=== PATIENT | female | born 1990 | race Caucasian/White ===

== ENCOUNTER 2021-12-02 22:30 | Emergency (ER) | payer OTHER ==
[2021-12-02] MEDS: predniSONE 20 MG TABLET PO STA (23:58)
[2021-12-02] MEDS: FAMOTIDINE 20 MG TABLET PO STA (23:58)
--- NOTE | 2021-12-03 00:06 | ED Physician Documentation ---
History of Present Illness - Stated complaint Stated Complaint: BODY RASH - Chief complaint Chief Complaint: General - History obtained from History obtained from: Patient - Additonal information Additional information: The patient comes to the emergency department chief complaint of intermittent hives for the last few days. The patient states she has not eaten or she states the rash just came up out of the blue and then seem to resolve with some Benadryl. Patient states that the next day, she noticed the urticaria, but in a different location. She states she took Benadryl again and this seemed to help again. Patient states she became concerned yesterday because the urticaria returned again but this time, the Benadryl did not seem as effective. Patient states she is gotten the rash both at home and at work. She has not been exposed to anything new whatsoever whether internally or externally. She did have a URI about a week ago, but states her symptoms are gone now. She does not have a history of being allergic to anything. No one else is sick at home. She has pictures of the rash on her phone, since she is really not having much of a rash right now, and the pictures do appear consistent with urticaria. No other complaints at this time. Review of Systems Ten Systems: 10 systems reviewed and negative Constitutional: reports: Reviewed and negative Eyes: reports: Reviewed and negative Ears: reports: Reviewed and negative Nose: reports: Reviewed and negative Throat: reports: Reviewed and negative Cardiac: reports: Reviewed and negative Respiratory: reports: Reviewed and negative GI: reports: Reviewed and negative : reports: Reviewed and negative Skin: reports: Rash Musculoskeletal: reports: Reviewed and negative Neurologic: reports: Reviewed and negative Psychiatric: reports: Reviewed and negative Endocrine: reports: Reviewed and negative Immunocompromised: reports: Reviewed and negative PD PAST MEDICAL HISTORY - Past Medical History Past Medical History: No Cardiovascular: None Respiratory: None Neuro: None Endocrine/Autoimmune: None GI: None 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: 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 : None HEENT: None Psych: None Musculoskeletal: None Derm: None - Past Surgical History Past Surgical History: No - Present Medications Home Medications: Ambulatory Orders Medication Instructions Recorded Confirmed Famotidine [Pepcid] 20 mg PO BID #6 tablet 12/03/21 predniSONE [Deltasone] 60 mg PO DAILY 3 Days #9 tablet 12/03/21 - Allergies Allergies/Adverse Reactions: Allergies Allergy/AdvReac Type Severity Reaction Status Date / Time Penicillins Allergy Rash Verified 12/02/21 22:38 - Social History Does the pt smoke?: No Smoking Status: Never smoker Does the pt drink ETOH?: Yes Does the pt have substance abuse?: No - Immunizations Immunizations are current?: Yes PD ED PE NORMAL - Vitals Vital signs reviewed: Yes - General General: Alert and oriented X 3, No acute distress, Well developed/nourished - HEENT HEENT: Atraumatic, PERRL, EOMI, Moist mucous membranes - Neck Neck: Supple, no meningeal sign - Respiratory Respiratory: No respiratory distress - Derm Derm: Normal color, Warm and dry, No rash - Extremities Extremities: No deformity, No edema, No calf tenderness / cord - Neuro Neuro: Alert and oriented X 3, outsole cutter machine 2-12 intact, Normal speech - Psych Psych: Normal mood, Normal affect Results - Vitals Vitals: Oxygen O2 Source Room air PD MEDICAL DECISION MAKING - ED course Complexity details: considered differential, d/w patient ED course: I discussed with the patient that is not clear at this point was causing u rticaria. We will place her on a course short course of prednisone since her urticaria seem to come and go but seem to be less responsive to Benadryl than before, and see if this stops the cycle. I have encouraged patient to keep a log or diary of places that she went and things to which she was exposed, including externally, such as detergents, lotions, and soap, and any internal exposures such as food or medication, and see if she can establish any sort of pattern or association for her urticaria. We have discussed the need for follow-up with her primary doctor and the need to discuss allergy referral if the patient's urticaria keep going on and she cannot figure out why. We have discussed the usual indications for return Departure - Departure Disposition: 01 Home, Self Care Clinical Impression: Allergic reaction Qualifiers: Encounter type: initial encounter Qualified Code(s): T78.40XA - Allergy, unspecified, initial encounter Condition: Stable Instructions: ED Allergic Reaction General Other Prescriptions: predniSONE [Deltasone] 60 mg PO DAILY 3 Days #9 tablet Famotidine [Pepcid] 20 mg PO BID #6 tablet Comments: It is not clear at this point what has caused your hives. It is most likely a reaction to something, though occasionally, certain viruses can cause outbreaks of hives, as well. It sounds like the reaction overall is fairly mild, and has mostly been controlled by Benadryl; however, it can be helpful to be on medication to address all aspects of an allergic reaction and as such, we will add prednisone and Pepcid to try to break the cycle of hive formation. You may take these for 3 days. If you are still having hives at that point, you will need to talk to your doctor about getting referred to an quick sketch artist. At this point in time, though you have not been able to identify anything that might have caused the reaction, it is still important to keep a log of exposures, whether food or other substances or environments, to try to establish a common pattern for the outbreaks. If you begin to have any swelling of the structures of your throat or mouth, please return to the emergency department immediately. Discharge Date/Time: 12/03/21 00:13
[2021-12-03 00:13] VITALS: BP 106/74
== END 2021-12-03 00:13 | disposition home or self-care (01) ==
LOC: ED 22:30
DX: T78.40XA Allergy, unspecified, initial encounter (principal); L50.9 Urticaria, unspecified
CPT/HCPCS: 99282; A9270; J7512

== ENCOUNTER 2022-02-17 09:18 | Emergency (ER) | payer OTHER ==
--- NOTE | 2022-02-17 09:49 | ED Physician Documentation ---
History of Present Illness - Stated complaint Stated Complaint: JAW PX - Chief complaint Chief Complaint: General - History obtained from History obtained from: Patient - Additonal information Additional information: The patient comes to the emergency department chief complaint of left TMJ popping and pain worsening over the last few days. The patient states it started while she was eating a bagel and she noticed a pop and a sharp pain. She states it felt as though her jaw then "popped back into place" and the pain went away. Patient states she had the same experience the next day while eating chips. This morning, it happened again while she was eating a breakfast sandwich and this time, the pain has persisted and she has not felt the sensation of popping back in the place. The patient states that she has had issues with her TMJ popping on that side, that that has never been painful before. She states she does not chew gum regularly. She is not a glass grinder or clench her of her teeth at night as far she knows. The patient denies any direct trauma. No dental pain or swelling. No other complaints at this time. Review of Systems Ten Systems: 10 systems reviewed and negative Constitutional: reports: Reviewed and negative Eyes: reports: Reviewed and negative Ears: reports: Reviewed and negative Nose: reports: Reviewed and negative Throat: reports: Reviewed and negative Cardiac: reports: Reviewed and negative Respiratory: reports: Reviewed and negative GI: reports: Reviewed and negative : reports: Reviewed and negative Skin: reports: Reviewed and negative Musculoskeletal: reports: Reviewed and negative Neurologic: reports: Reviewed and negative Psychiatric: reports: Reviewed and negative Endocrine: reports: Reviewed and negative Immunocompromised: reports: Reviewed and negative PD PAST MEDICAL HISTORY - Past Medical History Past Medical History: Yes Cardiovascular: None Respiratory: None Neuro: None Endocrine/Autoimmune: None GI: None SURGICAL COORDINATOR: None : None HEENT: None Psych: None Musculoskeletal: None Derm: None - Past Surgical History Past Surgical History: No - Present Medications Home Medications: Ambulatory Orders Medication Instructions Recorded Confirmed No Known Home Medications 02/17/22 02/17/22 - Allergies Allergies/Adverse Reactions: Allergies Allergy/AdvReac Type Severity Reaction Status Date / Time Penicillins Allergy Rash Verified 02/17/22 09:20 - Social History Does the pt smoke?: No Smoking Status: Former smoker Does the pt drink ETOH?: Yes Does the pt have substance abuse?: No - Immunizations Immunizations are current?: Yes PD ED PE NORMAL - Vitals Vital signs reviewed: Yes - General General: Alert and oriented X 3, No acute distress, Well developed/nourished - HEENT HEENT: Atraumatic, PERRL, EOMI, Moist mucous membranes, Other (Mild tenderness over left TMJ. No popping or clicking with range of motion. No deformity. Nearly full range of motion noted.) - Neck Neck: Supple, no meningeal sign, No adenopathy - Respiratory Respiratory: Clear bilaterally - Abdomen Abdomen: Normal bowel sounds, Soft, Non tender, Non distended - Derm Derm: Warm and dry - Extremities Extremities: No deformity - Neuro Neuro: Alert and oriented X 3 - Psych Psych: Normal mood, Normal affect Results - Vitals Vitals: Oxygen O2 Source Room air PD MEDICAL DECISION MAKING - ED course Complexity details: considered differential, d/w patient ED course: I d/w pt that her condition is nonemergent at this time, and that she does not have a TMJ dislocation. We have discussed symptomatic management and prevention, and the need for follow-up. Departure - Departure Disposition: 01 Home, Self Care Clinical Impression: TMJ syndrome Condition: Stable Instructions: ED TMJ Syndrome Follow-Up: HALEIGH GLORIA [Physician No Access] - Comments: Your symptoms are consistent with TMJ syndrome, a condition in which the temporomandibular joint, or jaw joint, is chronically inflamed and tracks improperly. This can cause sometimes just a clicking or popping, or can lead to episodes of pain. Initial treatment is usually to avoid chewing if at all possible until the pain goes down, and to take anti-inflammatories. You should generally avoid chewing things that are excessively "too weak" or hard, and that put a lot of strain on your joint. You should also avoid chewing gum if this keeps going on. Initial follow-up is usually with your dentist to see if you have a problem with clenching or grinding at night, one of the most common causes of TMJ syndrome. Sometimes excessive chewing of gum can cause this, though it does not sound like this is the case with you. If you are unable to see your dentist, or they are unable to provide satisfactory help for you, you may follow-up with Dr. Gloria, a local oral maxillofacial surgeon. For now, please eat only soft foods that require minimal chewing and take ibuprofen to help with inflammation. Discharge Date/Time: 02/17/22 09:53
== END 2022-02-17 09:53 | disposition home or self-care (01) ==
LOC: ED 09:18
DX: M26.622 Arthralgia of left temporomandibular joint (principal); Z87.891 Personal history of nicotine dependence
CPT/HCPCS: 99281; 99284

== ENCOUNTER 2022-08-08 13:17 | Emergency (ER) | payer OTHER ==
[2022-08-08 13:37] VITALS: BP 126/75
--- NOTE | 2022-08-08 15:19 | ED Physician Documentation ---
History of Present Illness - Stated complaint Stated Complaint: FB IN NOSE - Chief complaint Chief Complaint: Heent - Additonal information Additional information: 32-year-old female presents to the emergency department for evaluation of a f oreign body in her right nares. She did have a septal piercing that got dislodged and has now been lost into the posterior nasal field. 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 : None HEENT: None Psych: None Musculoskeletal: None Derm: None - Past Surgical History Past Surgical History: No - Present Medications Home Medications: Ambulatory Orders Medication Instructions Recorded Confirmed Levothyroxine Sodium 50 mcg PO DAILY 08/08/22 08/08/22 [Levothyroxine] - Allergies Allergies/Adverse Reactions: Allergies Allergy/AdvReac Type Severity Reaction Status Date / Time Penicillins Allergy Rash Verified 08/08/22 13:37 - Social History Does the pt smoke?: No Smoking Status: Former smoker Does the pt drink ETOH?: Yes Does the pt have substance abuse?: No - Immunizations Immunizations are current?: Yes PD ED PE EXPANDED - General General: Alert, No acute distress, Well developed/nourished - HEENT HEENT: Other (Unable to visualize a foreign body in the deeper posterior nasal field using nasal speculum.) Results - Vitals Vitals: Vital Signs - 24 hr 08/08/22 13:35 Temperature 36.4 C L Heart Rate 87 Respiratory 14 Rate Blood Pressure 126/75 O2 Saturation 99 Oxygen O2 Source Room air - Rads (name of study) nasal sinus xr Radiology: EMP read indepedently (No foreign body identified) PD MEDICAL DECISION MAKING - ED course Complexity details: considered differential, d/w patient ED course: 32-year-old female presents emergency department for concern that she has a right posterior nares foreign body. Her septal ring became dislodged and when she attempted to reposition it she feels that she may have pushed it deeper into the posterior nares. On my examination I am unable to see a posterior right nasal foreign body. Patient is rather convinced that there is a foreign body there so we did obtain some nasal and sinus x-ray imaging. Patient reports that the septal ring would have been metal and there is no findings to suggest a foreign body on x-ray imaging. I discussed this finding with the patient. Given that there is no obvious foreign body she is advised however to follow-up with ENT should she develop any foul smell, develop a headache or have malodorous drainage from her nares. Otherwise emergent return precautions discussed Departure - Departure Disposition: 01 Home, Self Care Clinical Impression: Nasal foreign body Qualifiers: Encounter type: initial encounter Qualified Code(s): T17.1XXA - Foreign body in nostril, initial encounter Condition: Stable Record reviewed to determine appropriate education?: Yes Comments: Berhane you are seen today in the emergency department because you think that your septal piercing may have been dislodged posterior lead into your nose. However when we look we do not see a foreign body in your nose. We also did sinus and nasal x-rays and do not see a foreign body on x-ray imaging. It is possible though unlikely, that the septal piercing does not show up or is not radiopaque. I do make the recommendation however that you monitor your symptoms closely. If you develop any foul odor, have purulent nasal drainage or develop pain in your sinus then please return immediately to the ER
--- NOTE | 2022-08-08 16:09 | XRAY Report ---
PROCEDURE: Nasal Bones INDICATIONS: Foreign body right nares TECHNIQUE: 3 views of the nasal bones acquired. COMPARISON: None FINDINGS: Bones: No fractures or dislocations. Nasal septum is midline. Normal nasociliary nerve grooves are noted. Soft tissues: No suspicious soft tissue calcifications. IMPRESSION: No radiopaque foreign body Reviewed by: Guevara Loja MD on 08/08/2022 3:07 PM KEATON Approved by: Guevara Loja MD on 08/08/2022 3:07 PM AKKAROLYN Station ID: [id number]
== END 2022-08-08 16:11 | disposition home or self-care (01) ==
LOC: ED 13:17
DX: T17.1XXA Foreign body in nostril, initial encounter (principal); X58.XXXA Exposure to other specified factors, initial encounter
CPT/HCPCS: 99282; 99283